=== PATIENT | male | born 1945 | race Caucasian/White ===

== ENCOUNTER 2020-07-18 18:06 | Outpatient (CLI) | payer MEDICARE, OTHER | END 2020-07-18 18:07 | disposition critical access hospital (66) | LOC: EMS 18:06 | DX: S19.9XXA Unspecified injury of neck, initial encounter (principal); M25.512 Pain in left shoulder; W18.39XA Other fall on same level, initial encounter; Y93.H9 Activity, other involving exterior property and land maintenance, building and construction | CPT/HCPCS: A0425; A0429 ==

== ENCOUNTER 2020-07-18 18:40 | Emergency (ER) | payer MEDICARE, OTHER ==
[2020-07-18] MEDS ORDERED: HYDROcod/ACETAM 5/325 MG TABLET PO STA (18:44)
--- NOTE | 2020-07-18 18:46 | ED Physician Documentation ---
PD HPI Fall - Stated complaint Stated Complaint: NECK PAIN, LT SHOULDER PAIN S/P GLF - History obtained from History obtained from: Patient, EMS - Additional information Additional information: Otherwise healthy 74-year-old gentleman was removing a fence post and fell backwards because someone else fell on him and then hit his head on the ground. He complains of moderate to severe neck pain, less so left shoulder pain. No loss of consciousness. No other injuries. He does note some back pain though that started because of laying on the hard backboard on the way here. Review of Systems Ten Systems: 10 systems reviewed and negative Constitutional: reports: Reviewed and negative Eyes: reports: Reviewed and negative Ears: reports: Reviewed and negative Nose: reports: Reviewed and negative Throat: reports: Reviewed and negative PD PAST MEDICAL HISTORY - Present Medications Home Medications: Ambulatory Orders Medication Instructions Recorded Confirmed HYDROcod/ACETAM 5/325 [[place] 5/325] 1 - 2 tab PO Q6H PRN #15 tablet 07/18/20 Ibuprofen 1 tab PO DAILY 07/18/20 07/18/20 - Allergies Allergies/Adverse Reactions: Allergies Allergy/AdvReac Type Severity Reaction Status Date / Time No Known Drug Allergies Allergy Verified 07/18/20 18:51 PD ED PE NORMAL - Vitals Vital signs reviewed: Yes - General General: Alert and oriented X 3, No acute distress - HEENT HEENT: PERRL, EOMI - Neck Neck: Other (Mild tenderness to the low C-spine, maintained in a c-collar pending imaging.) - Cardiac Cardiac: RRR, No murmur - Respiratory Respiratory: No respiratory distress, Clear bilaterally - Abdomen Abdomen: Normal bowel sounds, Soft, Non tender - Back Back: No CVA TTP, No spinal TTP - Derm Derm: Normal color, Warm and dry - Extremities Extremities: Other (I am unable to elicit any tenderness around the left shoulder, full range of motion of the left shoulder and other joints. No rib tenderness.) - Neuro Neuro: Alert and oriented X 3, No motor deficit, No sensory deficit, Normal speech Results - Vitals Vitals: Vital Signs - 24 hr 07/18/20 18:42 Temperature 37.1 C Heart Rate 72 Respiratory 18 Rate Blood Pressure 130/79 O2 Saturation 100 Oxygen O2 Source Room air - Rads (name of study) CT Head and Cspine Radiology: EMP read contemporaneously PD MEDICAL DECISION MAKING - ED course ED course: 74-year-old gentleman with traumatic injuries of the head and neck. Also the shoulder but the examination there is very reassuring. CTs of the head and neck were done without acute traumatic findings but the incidental findings and arthritic type changes were discussed with him. I am prescribing a short course of short-acting opioid pain medication for this patient. I have reviewed the patients [employer] and no concerning findings were noted. I have discussed that the opioids are for short term therapy only, and will not be refilled from the ED. Departure - Departure Disposition: 01 Home, Self Care Clinical Impression: Injury of head and neck Qualifiers: Encounter type: initial encounter Qualified Code(s): S09.90XA - Unspecified injury of head, initial encounter; S19.9XXA - Unspecified injury of neck, initial encounter Condition: Good Record reviewed to determine appropriate education?: Yes Instructions: ED Head Injury Closed, ED Sprain Strain Neck Prescriptions: HYDROcod/ACETAM 5/325 [[place] 5/325] 1 - 2 tab PO Q6H PRN #15 tablet PRN Reason: Pain Comments: As discussed, you do have evidence of significant arthritic type changes in your neck. Results of the CT scan as follows: IMPRESSION: No evidence of osseous fracture or traumatic malalignment. 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 Consider follow-up MRI for cord evaluation Degenerative changes also results in moderate central and severe bilateral foraminal stenosis at C5-6 Follow-up with your primary care physician, next available appointment. Return for new or worsening symptoms. I am prescribing a short course of narcotic pain medication for you. These are potentially dangerous and addictive medications that should be used carefully. These medications may constipate you. Take an vgbq-oqo-rsltxbs stool softener (docusate) twice daily with plenty of water while taking these medications. If you go 24 hours without a bowel movement, take xtsy-rsk-rzrvrlj miralax, per package instructions. Do not drink or drive while taking these medications. If you received narcotic or sedating medications while in the emergency department, do not drive for 24 hours. Store this medication in a safe, secure place and out of reach of children. It is a violation of federal law to give or sell this medication to another person or to use in a manner other than prescribed. The ED will not refill narcotic prescriptions, including prescriptions lost or stolen. To dispose of unwanted medications: 1. [facility] at [address] in [place] has a medication drop box. They accept prescription medications (in pill form) Tuesday through Tuesday 9:00 a.m. to 5:00 p.m. 2. The [facility] [employer] accepts prescription medications (in pill form only) for disposal year round. Call for more information. 3. Contact the [facility] for the next [facility] sponsored prescription drug collection event. , [phone], or [phone]; Note that many narcotic pain relievers also contain Tylenol/acetaminophen. Please ensure that your total dose of acetaminophen from all sources does not exceed 3 g (3000 mg) per day.
[2020-07-18 18:52] VITALS: BP 130/79
--- NOTE | 2020-07-18 19:26 | CT Report ---
PROCEDURE: HEAD WO INDICATIONS: Fall, head/neck injury TECHNIQUE: Noncontrast 4.5 mm thick angled axial sections acquired from the foramen magnum to the vertex. For r adiation dose reduction, the following was used: automated exposure control, adjustment of mA and/or kV according to patient size. COMPARISON: None. FINDINGS: Cerebrum, Cerebellum and Brainstem: Mild cerebral and cerebellar atrophy as well as minimal multif ocal hypoattenuation in the deep and subcortical white matter present. No acute hemorrhage or mass e ffect. Jarrell-white distinction is preserved throughout the exam. Basal cisterns and foramen magnum a re clear. Ventricles: Appropriate in size and position given the amount of cerebral atrophy. No evidence of h ydrocephalus. Skull Base: The bony sella, pituitary gland and infundibulum are unremarkable. Clivus and craniover tebral relationships are appropriate. Visualized portions of external auditory canals and tympanic c avities are within normal limits. Calvarium and Scalp: No scalp soft tissue swelling. The underlying calvarium is intact without skul l fracture or lytic lesion. Paranasal Sinuses: Unremarkable as visualized. No mucosal thickening or retention cyst noted. Mastoids: Unremarkable as visualized. No mastoid effusion present. Other: Atherosclerotic calcification in the cavernous portions of the distal internal carotid arteri es are noted. IMPRESSION: 1. Atrophy and multifocal white matter chronic ischemic change without acute hemorrhage or mass effe ct. Reviewed by: Wei Berger MD on 07/18/2020 6:24 PM JIN Approved by: Wei Berger MD on 07/18/2020 6:24 PM AKDT Station ID: [id number]
--- NOTE | 2020-07-18 19:34 | CT Report ---
PROCEDURE: CERVICAL SPINE WO INDICATIONS: Fall, head/neck injury TECHNIQUE: Noncontrast 3 mm thick sections acquired from the skull base to the T4 level. Sagittal and coronal r eformats were then constructed. For radiation dose reduction, the following was used: automated exp osure control, adjustment of mA and/or kV according to patient size. COMPARISON: None. FINDINGS: Image quality: Excellent. Bones: No fractures or dislocations. Visualized superior ribs are intact. Disc space narrowing and hypertrophic facet joints particularly noted at the C3-4-5, C5-6 and C6-7. Large anterior osteophyte present C5-6. 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 Moderate central stenos is present at C5-6. Severe bilateral foraminal stenosis present at C5-6 as well. There is straightening of normal cervical lordosis noted. Soft tissues: Prevertebral soft tissues are normal in thickness. No paravertebral hematomas. No ap ical pneumothoraces. IMPRESSION: No evidence of osseous fracture or traumatic malalignment. 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 Consider follow-up MRI for cord evaluation Degenerative changes also results in moderate central and severe bilateral foraminal stenosis at C5-6 Reviewed by: Wei Berger MD on 07/18/2020 6:33 PM JIN Approved by: Wei Berger MD on 07/18/2020 6:33 PM JIN Station ID: [id number]
== END 2020-07-18 20:03 | disposition home or self-care (01) ==
LOC: ED 18:40
DX: S09.90XA Unspecified injury of head, initial encounter (principal); S19.9XXA Unspecified injury of neck, initial encounter; W18.30XA Fall on same level, unspecified, initial encounter; Y93.H3 Activity, building and construction; M48.02 Spinal stenosis, cervical region
CPT/HCPCS: 70450; 72125; 99284; A9270